=== PATIENT | female | born 1970 | race Caucasian/White ===

== ENCOUNTER 2024-07-30 20:14 | Observation (INO) ==
[2024-07-30 21:03] LABS: Basophils # (auto) 0.06 K/uL (0.00-0.20); Basophils % (auto) 0.4 %; Hematocrit (blood only) 39.5 % (37.0-47.0); Hemoglobin 13.8 g/dl (12.0-16.0); Immature Granulocytes # (auto) 0.07 K/uL (0.01-0.20); Immature Granulocytes % (auto) 0.5 %; Lymphocytes # (auto) 1.67 K/uL (1.20-3.40); Lymphocytes % (auto) 11.2 %; Mean Corpuscular Hemoglobin 29.1 pg (25.0-34.0); Mean Corpuscular Hgb Conc 34.9 g/dL (32.0-36.0); Mean Corpuscular Volume 83.2 fL (80.0-100.0); Mean Platelet Volume 9.8 fL (9.4-12.4); Monocytes # (auto) 1.17 K/uL (0.11-0.59); Monocytes % (auto) 7.8 %; Neutrophils # (auto) 11.99 K/uL (1.40-6.50); Neutrophils % (auto) 80.1 %; Platelet Count 295 K/uL (130-400); RDW Standard Deviation 39.2 fL (36.4-46.3); Red Blood Count 4.75 M/uL (4.20-5.40); White Blood Count 14.96 K/ul (4.8-10.8)
[2024-07-30 21:07] LABS: Appearance Urine Clear (Clear); Bacteria Urine Automated None Seen (None Seen); Bilirubin Urine Negative (Negative); Blood Urine Trace (Negative); Cast Urine Automated 0-2 /lpf (0-2); Color Urine Yellow; Epithelial Cell Urine Auto 0-2 /hpf (0-2); Glucose Urine UA Negative (Negative); Ketones Urine Negative (Negative); Leukocyte Esterase Urine Negative (Negative); Nitrite Urine Negative (Negative); Protein Urine Negative (Negative); RBC Urine Automated 0-2 /hpf (0-2); Specific Gravity Urine 1.009 (1.000-1.030); Urobilinogen Urine Negative (Negative); WBC Urine Automated 0-5 /hpf (0-5); pH Urine 8.5 (4.5-7.5)
[2024-07-30 21:21] LABS: Albumin Globulin Ratio 1.7 (0.9-2); BUN Creatinine Ratio 30.3 (10-20); Bilirubin,Total 1.9 mg/dl (0.2-1.0); Calcium 10.4 mg/dl (8.6-10.3); Creatinine Clr Calc Pharmacy 41.9 ml/min; Globulin 2.6 gm/dl (2.5-4.0); Potassium 3.8 mmol/L (3.5-5.1)
--- NOTE | 2024-07-30 21:42 | Emergency Department Note ---
History of Present Illness General Chief complaint: Illness Stated complaint: [employer] TODAY,LABORED BREATHING,DIARRHEA,TACHY Time Seen by Provider: 07/30/24 21:15 History of Present Illness This is a 54-year-old female presenting to the emergency department for evaluation of tachycardia, difficulty breathing, diarrhea, and fatigue. Patient competed in the [employer] today, which includes a swim of over 1 mile, 56 mile bike ride, and half marathon. She completed the event and was trying to stay hydrated with electrolyte drinks. Patient was able to complete the [employer] and feels like she has not recovered as she normally does. She does have a past history of exercise-induced asthma, but is otherwise usually healthy. She does not report any fevers or chills. She is concerned that she may be dehydrated. She rates her current discomfort a 4/10. The event ended about 4 to 5 hours prior to arrival. Home Medications Medication Instructions Recorded Confirmed Type cetirizine 10 mg tablet (Zyrtec) 10 mg PO DAILY PRN allergies 07/30/24 07/30/24 History multivitamin 1 tab PO DAILY 07/30/24 07/30/24 History Allergies Allergy/AdvReac Type Severity Reaction Status Date / Time No Known Allergies Allergy Unverified 07/30/24 20:54 Past Med/Surg History Problem List (Updated 07/31/24 @ 05:07 by Daniel Wall PA-C) Elevated troponin (Acute) Rhabdomyolysis (Acute) No chronic diseases present Social History Smoking Status: Never smoker Hx Alcohol Use: No Hx Substance Use: No Preferred Language: Belarusian Communication Ability: Effective Central Service Technician Required: No Beliefs That Will Affect Care: None Current Living Situation Comment: With her two adult children Feels Safe at Home: Yes Assistive Devices: None Review of Systems A total of 10 systems reviewed and were otherwise negative Physical Exam Vital Signs Vital Signs - 24 hr 07/30/24 20:22 07/30/24 20:47 07/30/24 21:12 Temperature 36.8 C Temperature Source Temporal Artery Scan Pulse Rate 84 82 Pulse Rate [Apical] 74 Pulse Rhythm [Apical] Regular Pulse Strength [Apical] Normal Respiratory Rate 22 17 16 Respiratory Effort / Characteristics Non-Labored Spontaneous Non-Labored Spontaneous Respiratory Depth Normal Normal Respiratory Pattern Regular Regular Blood Pressure 139/63 128/74 Blood Pressure [Left Arm] 146/77 H Blood Pressure Mean 88 92 Blood Pressure Mean [Left Arm] 100 Blood Pressure Position Sitting Pulse Oximetry 96 98 98 Oxygen Delivery Method Room Air Room Air Sepsis Recent Fever Within 48 Hours No Sepsis New/Unexplained Change in Mental Status N/A Sepsis Action Taken by Nursing No Action Required 07/30/24 21:38 07/30/24 21:39 07/30/24 22:00 Temperature Temperature Source Pulse Rate 73 70 72 Pulse Rate [Apical] Pulse Rhythm [Apical] Pulse Strength [Apical] Respiratory Rate 15 19 Respiratory Effort / Characteristics Respiratory Depth Respiratory Pattern Blood Pressure 135/74 130/87 Blood Pressure [Left Arm] Blood Pressure Mean 94 103 Blood Pressure Mean [Left Arm] Blood Pressure Position Pulse Oximetry 97 98 Oxygen Delivery Method Sepsis Recent Fever Within 48 Hours Sepsis New/Unexplained Change in Mental Status Sepsis Action Taken by Nursing 07/30/24 22:27 07/30/24 23:06 07/30/24 23:36 Temperature Temperature Source Pulse Rate 65 67 71 Pulse Rate [Apical] Pulse Rhythm [Apical] Pulse Strength [Apical] Respiratory Rate 15 18 17 Respiratory Effort / Characteristics Respiratory Depth Respiratory Pattern Blood Pressure 123/66 140/87 127/73 Blood Pressure [Left Arm] Blood Pressure Mean 85 104 91 Blood Pressure Mean [Left Arm] Blood Pressure Position Pulse Oximetry 99 98 100 Oxygen Delivery Method Sepsis Recent Fever Within 48 Hours Sepsis New/Unexplained Change in Mental Status Sepsis Action Taken by Nursing 07/31/24 00:00 07/31/24 00:33 07/31/24 00:51 Temperature Temperature Source Pulse Rate 67 69 74 Pulse Rate [Apical] Pulse Rhythm [Apical] Pulse Strength [Apical] Respiratory Rate 14 22 Respiratory Effort / Characteristics Respiratory Depth Respiratory Pattern Blood Pressure 143/85 H 134/66 Blood Pressure [Left Arm] Blood Pressure Mean 104 88 Blood Pressure Mean [Left Arm] Blood Pressure Position Pulse Oximetry 100 98 Oxygen Delivery Method Sepsis Recent Fever Within 48 Hours Sepsis New/Unexplained Change in Mental Status Sepsis Action Taken by Nursing 07/31/24 01:15 Temperature Temperature Source Pulse Rate 67 Pulse Rate [Apical] Pulse Rhythm [Apical] Pulse Strength [Apical] Respiratory Rate 25 H Respiratory Effort / Characteristics Respiratory Depth Respiratory Pattern Blood Pressure 146/86 H Blood Pressure [Left Arm] Blood Pressure Mean 106 Blood Pressure Mean [Left Arm] Blood Pressure Position Pulse Oximetry 98 Oxygen Delivery Method Sepsis Recent Fever Within 48 Hours Sepsis New/Unexplained Change in Mental Status Sepsis Action Taken by Nursing VITALS: Vitals are noted on the nurse's note and reviewed by myself. Vital signs stable. GENERAL: Well-developed, well-nourished, white female, who is in no acute distress and resting comfortably. Patient is cooperative with the examination. HEAD: Normocephalic atraumatic. EARS: External ear normal. External auditory canals clear, tympanic membranes pearly marti without erythema or effusion bilaterally. EYES: Pupils equal round and reactive to light and accommodation. Conjunctivae without injection, sclerae without icterus. Extraocular movements intact. NOSE: Patent, turbinates without inflammation or discharge. MOUTH: Mucous membranes moist. Tonsils are not enlarged. Pharynx without erythema, blood, or exudate. Uvula midline. Airway patent. NECK: Supple without nuchal rigidity. No lymphadenopathy. No thyromegaly. Cervical spine is nontender. HEART: Regular rate and rhythm without murmurs gallops or rubs. LUNGS: Clear to auscultation bilaterally without wheezes, rales or rhonchi. No retractions or accessory muscle use. ABDOMEN: Positive normal bowel sounds x 4. Soft, nontender, without masses or organomegaly. No guarding or rebound tenderness. MUSCULOSKELETAL: No muscle atrophy, erythema, or edema noted. Full range of motion in all extremities. Course Administered Medications Sodium Chloride (Nss) 1,000 mls @ 200 mls/hr IV .Q5H ANALISA Stop: 08/03/24 02:40 Last Admin: 07/31/24 03:16 Dose: 200 mls/hr Documented By: MY Discontinued Medications Sodium Chloride (Nss) 1,000 mls @ 999 mls/hr IV .Q1H1M ONE Stop: 07/30/24 22:56 Last Infusion: 07/30/24 23:22 Dose: Infused Documented By: Admin: 07/30/24 22:07 Dose: 999 mls/hr Documented By: WING Sodium Chloride (Nss) 1,000 mls @ 999 mls/hr IV .Q1H1M ONE Stop: 07/31/24 00:32 Last Infusion: 07/31/24 01:26 Dose: Infused Documented By: Admin: 07/30/24 23:35 Dose: 999 mls/hr Documented By: WING Magnesium Sulfate/Dextrose (Magnesium Sulfate / D5w) 1 gm in 100 mls @ 50 mls/hr IV ONE STA Stop: 07/31/24 04:00 Last Admin: 07/31/24 02:12 Dose: 50 mls/hr Documented By: WING Medical Decision Making Differential Diagnosis Differential diagnosis includes, but is not limited to: Myocardial infarction, dysrhythmia, pericarditis, pneumothorax, aortic aneurysm/dissection, DVT/PE, anxiety, GERD, PUD, electrolyte imbalance, thyroid disorder, pneumonia, bronchitis, pancreatitis, and others Laboratory Data 07/30/24 20:40 07/30/24 20:40 Lab Results 07/30/24 07/30/24 Range/Units 20:40 20:54 WBC 14.96 H (4.8-10.8) K/ul RBC 4.75 (4.20-5.40) M/uL Hgb 13.8 (12.0-16.0) g/dl Hct 39.5 (37.0-47.0) % MCV 83.2 (80.0-100.0) fL MCH 29.1 (25.0-34.0) pg MCHC 34.9 (32.0-36.0) g/dL RDW Std Deviation 39.2 (36.4-46.3) fL RDW Coeff of Juan R 13.0 (11.5-14.5) % Plt Count 295 (130-400) K/uL MPV 9.8 (9.4-12.4) fL Immature Gran % (Auto) 0.5 % Neut % (Auto) 80.1 % Lymph % (Auto) 11.2 % [place] % (Auto) 7.8 % Eos % (Auto) 0.0 % Baso % (Auto) 0.4 % Neut # (Auto) 11.99 H (1.40-6.50) K/uL Lymph # (Auto) 1.67 (1.20-3.40) K/uL [place] # (Auto) 1.17 H (0.11-0.59) K/uL Eos # (Auto) 0.00 (0.00-0.50) K/uL Baso # (Auto) 0.06 (0.00-0.20) K/uL Immature Gran # (Auto) 0.07 (0.01-0.20) K/uL Sodium 140 (136-145) mmol/L Potassium 3.8 (3.5-5.1) mmol/L Chloride 103 (98-107) mmol/L Carbon Dioxide 26 (21-32) mmol/L Anion Gap 11 (3-11) BUN 37 H (6-23) mg/dl Creatinine 1.22 H (0.6-1.2) mg/dl Est Cr Clr Drug Dosing 41.9 ml/min eGFR 53.06 BUN/Creatinine Ratio 30.3 H (10-20) Glucose 120 H (70-99(Fasting)) mg/dl Calcium 10.4 H (8.6-10.3) mg/dl Total Bilirubin 1.9 H (0.2-1.0) mg/dl AST 149 H (13-39) U/L ALT 52 (7-52) U/L Alkaline Phosphatase 77 (34-104) U/L Total Creatine Kinase 4530 H (26-192) U/L Troponin I High Sens 139.6 H* (0-14) pg/ml Total Protein 7.0 (6.0-8.3) gm/dl Albumin 4.4 (3.4-5.0) gm/dl Globulin 2.6 (2.5-4.0) gm/dl Albumin/Globulin Ratio 1.7 (0.9-2) Urine Color Yellow Urine Appearance Clear (Clear) Urine pH 8.5 H (4.5-7.5) Ur Specific [place] 1.009 (1.000-1.030) Urine Protein Negative (Negative) Urine Glucose (UA) Negative (Negative) Urine Ketones Negative (Negative) Urine Blood Trace H (Negative) Urine Nitrite Negative (Negative) Urine Bilirubin Negative (Negative) Urine Urobilinogen Negative (Negative) Ur Leukocyte Esterase Negative (Negative) Urine WBC (Auto) 0-5 (0-5) /hpf Urine RBC (Auto) 0-2 (0-2) /hpf U Hyaline Cast (Auto) 0-2 (0-2) /lpf U Epithel Cells (Auto) 0-2 (0-2) /hpf Urine Bacteria (Auto) None Seen (None Seen) Urine Comment Imaging Data Radiologist's Impression: Chest X-Ray 07/30/24 21:20 Exam(s): XR CXR 1 VIEW EXAM: XR Chest, 1 View CLINICAL HISTORY: Reason for exam: sob. TECHNIQUE: Frontal view of the chest. COMPARISON: No relevant prior studies available. FINDINGS: Lungs: Mild to moderate peribronchial thickening of the central bronchi. No consolidation. Pleural space: Unremarkable. No pneumothorax. Heart: Unremarkable. No cardiomegaly. Mediastinum: Unremarkable. Normal mediastinal contour. Bones/joints: Unremarkable. No acute fracture. IMPRESSION: Bronchitis, which may be of infectious or inflammatory etiologies. No consolidation or pleural effusion. Electronically signed by: Jessika Bran MD 07/31/24 03:08 AM MDM Narrative Physical exam and history were performed. Nursing notes, EMR, and Medication List were personally reviewed. No social concerns were identified as barriers to patients care. History was provided by the Patient and significant other at bedside. Patient appears to have several complaints bring her to the ER. She did participate in the [employer] competition this afternoon, and was able to complete it. Symptoms began after completion. She has not had much to eat since the episode, stating that she had a potato. IV access was established and labs were obtained. Patient was hydrated with normal saline. An order was placed for continuous cardiac monitoring. The monitor shows a rate of 86 with normal sinus rhythm. Patient's blood work is as above and was reviewed. She does have a slightly elevated white count of almost 15,000. She does not have significant anemia. Creatinine is 1.22. Glucose 120. Patient's initial troponin is 139. Total CK is 4530. Urine without evidence of infection. Chest x-ray reviewed by myself and radiology showing no acute process. Escalation of care was considered, and felt to be necessary. I suspect the initial troponin elevation is demand based after competing in the [employer] today. Unfortunately she appears to be in rhabdomyolysis. Patient was given additional fluids. Case was discussed with my attending as well as the on-call hospitalist team. Please see the hospitalist dictation for further patient course, plan, and disposition. The chart was completed utilizing [employer] Speech Voice Recognition Software. Grammatical errors, random word insertions, pronoun errors, and incomplete sentences are an occasional consequence of this system due to software limitations, ambient noise, and hardware issues. Any formal questions or concerns about the content, text, or information contained within the body of this dictation should be directly addressed to the provider for clarification. Impression & Plan Rhabdomyolysis, Elevated troponin Discharge Plan Visit Data Chief Complaint: Illness Stated Complaint: [employer] TODAY,LABORED BREATHING,DIARRHEA,TACHY ED Provider: Humza Kennedy ED Midlevel Provider: Daniel Wall Discharge Problem: Rhabdomyolysis, Elevated troponin Patient Disposition: Admitted As Inpatient Condition: Fair Discharge Instructions Interventions: ED Discharge Assessment Last Done: 07/31/24 02:17
[2024-07-30 21:54] LABS: Troponin I High Sensitivity 139.6 pg/ml (0-14)
[2024-07-30] MEDS: SODIUM CHLORIDE 0.9% 1,000 ML IV ONE ×2 (22:07→23:35)
--- NOTE | 2024-07-31 01:47 | History & Physical Report ---
Date of Service July 31, 2024 Assessment & Plan (1) Rhabdomyolysis: Plan: 54-year-old female with past medical history significant for primary hyperparathyroidism status post surgery, exercise-induced asthma who participated in [employer] today comes in because of not feeling well and found to have rhabdomyolysis. Patient participated in [employer] today which included swimming of over a 1 mile, 56 mile bike ride and half marathon. Patient completed the event and stayed hydrated. But after completing [employer] patient was having heart rates in 100s and was breathing heavily which did not improve even after several hours and also had several hours of diarrhea which prompted her to come to the ER. Currently diarrhea resolved. Denies any chest pain. Has some bodyaches from all the activity. Denies any shortness of breath. No headache. No runny nose or sore throat or cough. No fevers. No nausea. Micturating okay. Hemodynamics are okay. Rhabdomyolysis Participated in [employer] which included more than a mile of swimming, 56 miles of bike ride and half marathon. Completed the event. After that she was having heart rates in 100s and heavy breathing and diarrhea which did not subside even after several hours and came to the ER. Labs showed total [id number] Getting aggressive fluids Will follow repeat labs Elevated troponin Troponins 139 Denies any chest pain EKG shows some conduction delay and prolonged QTc Will follow serial enzymes and echo and repeat EKG will consult cardiology Monitor on telemetry Prolonged QTc Avoid QT prolonging drugs Will follow repeat EKG Elevated LFTs Total bilirubin 1.9 AST 140 and ALT 52 and alkaline phosphatase 77 Follow repeat LFTs in a.m. Mild hypercalcemia Calcium 10.4 Mostly from dehydration Follow repeat labs JADIEL Creatinine 1.2 BUN 37 Getting fluids Follow repeat labs Leukocytosis WBC 14 Most reactive Will follow repeat labs DVT prophylaxis SCDs for now Disposition Telemetry Full code. History of Present Illness Chief Complaint: Rhabdomyolysis Primary Care Provider: Suzan Marrero DO 54-year-old female with past medical history significant for primary hyperparathyroidism status post surgery, exercise-induced asthma who participated in [employer] today comes in because of not feeling well and found to have rhabdomyolysis. Patient participated in [employer] today which included swimming of over a 1 mile, 56 mile bike ride and half marathon. Patient completed the event and stayed hydrated. But after completing [employer] patient was having heart rates in 100s and was breathing heavily which did not improve even after several hours and also had several hours of diarrhea which prompted her to come to the ER. Currently diarrhea resolved. Denies any chest pain. Has some bodyaches from all the activity. Denies any shortness of breath. No headache. No runny nose or sore throat or cough. No fevers. No nausea. Mi cturating okay. Hemodynamics are okay. Past medical history. As mentioned above Past surgical history. Parathyroidectomy. dental surgery Social history. No smoking. No alcohol use. Family history. Denies any family history. Allergies Allergy/AdvReac Type Severity Reaction Status Date / Time No Known Allergies Allergy Unverified 07/30/24 20:54 Home Medications Medication Instructions Recorded Confirmed Type cetirizine 10 mg tablet (Zyrtec) 10 mg PO DAILY PRN allergies 07/30/24 07/30/24 History multivitamin 1 tab PO DAILY 07/30/24 07/30/24 History Past Med/Surg History Problem List (Updated 07/31/24 @ 05:07 by Daniel Wall PA-C) Elevated troponin (Acute) Rhabdomyolysis (Acute) No chronic diseases present Social History Smoking Status: Never smoker Hx Alcohol Use: No Hx Substance Use: No Preferred Language: Kinyarwanda Communication Ability: Effective Manager Instrumentation Required: No Beliefs That Will Affect Care: None Current Living Situation Comment: With her two adult children Feels Safe at Home: Yes Assistive Devices: None Review of Systems Review of Systems: All systems reviewed & are unremarkable except as noted in HPI & below Physical Exam Physical Exam: General- Not in distress Head- atraumatic Eyes- PERRL. ENT- oropharynx clear Neck- supple, no JVD. Lungs- clear to auscultation no wheezing or crackles Heart- regular rate and rhythm; no murmur, no gallop. Abdomen- normal bowel sounds, soft, nontender, no distension Extremities- no pretibial edema, no erythema seen Neuro- alert, oriented PERRL, no facial palsy; no dysarthria; moves extremities Results & Data Results & Data Vital Signs (Past 12 Hours) Vital Signs Temp Pulse Pulse Resp BP BP Pulse Ox 07/31/24 01:15 67 25 H 146/86 H 98 07/31/24 00:51 74 07/31/24 00:33 69 22 134/66 98 07/31/24 00:00 67 14 143/85 H 100 07/30/24 23:36 71 17 127/73 100 07/30/24 23:06 67 18 140/87 98 07/30/24 22:27 65 15 123/66 99 07/30/24 22:00 72 19 130/87 98 07/30/24 21:39 70 15 135/74 97 07/30/24 21:38 73 07/30/24 21:12 82 16 128/74 98 07/30/24 20:47 74 17 146/77 H 98 07/30/24 20:22 36.8 C 84 22 139/63 96 O2 Del Method 07/31/24 01:15 07/31/24 00:51 07/31/24 00:33 07/31/24 00:00 07/30/24 23:36 07/30/24 23:06 07/30/24 22:27 07/30/24 22:00 07/30/24 21:39 07/30/24 21:38 07/30/24 21:12 07/30/24 20:47 Room Air 07/30/24 20:22 Room Air Diagnostic Findings Laboratory Results WBC 14.96 K/ul (4.8-10.8) H 07/30/24 20:40 RBC 4.75 M/uL (4.20-5.40) 07/30/24 20:40 Hgb 13.8 g/dl (12.0-16.0) 07/30/24 20:40 Hct 39.5 % (37.0-47.0) 07/30/24 20:40 MCV 83.2 fL (80.0-100.0) 07/30/24 20:40 MCH 29.1 pg (25.0-34.0) 07/30/24 20:40 MCHC 34.9 g/dL (32.0-36.0) 07/30/24 20:40 RDW Std Deviation 39.2 fL (36.4-46.3) 07/30/24 20:40 RDW Coeff of Juan R 13.0 % (11.5-14.5) 07/30/24 20:40 Plt Count 295 K/uL (130-400) 07/30/24 20:40 MPV 9.8 fL (9.4-12.4) 07/30/24 20:40 Immature Gran % (Auto) 0.5 % 07/30/24 20:40 Neut % (Auto) 80.1 % 07/30/24 20:40 Lymph % (Auto) 11.2 % 07/30/24 20:40 [place] % (Auto) 7.8 % 07/30/24 20:40 Eos % (Auto) 0.0 % 07/30/24 20:40 Baso % (Auto) 0.4 % 07/30/24 20:40 Neut # (Auto) 11.99 K/uL (1.40-6.50) H 07/30/24 20:40 Lymph # (Auto) 1.67 K/uL (1.20-3.40) 07/30/24 20:40 [place] # (Auto) 1.17 K/uL (0.11-0.59) H 07/30/24 20:40 Eos # (Auto) 0.00 K/uL (0.00-0.50) 07/30/24 20:40 Baso # (Auto) 0.06 K/uL (0.00-0.20) 07/30/24 20:40 Immature Gran # (Auto) 0.07 K/uL (0.01-0.20) 07/30/24 20:40 Sodium 140 mmol/L (136-145) 07/30/24 20:40 Potassium 3.8 mmol/L (3.5-5.1) 07/30/24 20:40 Chloride 103 mmol/L (98-107) 07/30/24 20:40 Carbon Dioxide 26 mmol/L (21-32) 07/30/24 20:40 Anion Gap 11 (3-11) 07/30/24 20:40 BUN 37 mg/dl (6-23) H 07/30/24 20:40 Creatinine 1.22 mg/dl (0.6-1.2) H 07/30/24 20:40 Est Cr Clr Drug Dosing 41.9 ml/min 07/30/24 20:40 eGFR 53.06 07/30/24 20:40 BUN/Creatinine Ratio 30.3 (10-20) H 07/30/24 20:40 Glucose 120 mg/dl (70-99(Fasting)) H 07/30/24 20:40 Calcium 10.4 mg/dl (8.6-10.3) H 07/30/24 20:40 Total Bilirubin 1.9 mg/dl (0.2-1.0) H 07/30/24 20:40 AST 149 U/L (13-39) H 07/30/24 20:40 ALT 52 U/L (7-52) 07/30/24 20:40 Alkaline Phosphatase 77 U/L (34-104) 07/30/24 20:40 Total Creatine Kinase 4530 U/L (26-192) H 07/30/24 20:40 Troponin I High Sens 139.6 pg/ml (0-14) H* 07/30/24 20:40 Total Protein 7.0 gm/dl (6.0-8.3) 07/30/24 20:40 Albumin 4.4 gm/dl (3.4-5.0) 07/30/24 20:40 Globulin 2.6 gm/dl (2.5-4.0) 07/30/24 20:40 Albumin/Globulin Ratio 1.7 (0.9-2) 07/30/24 20:40 Urine Color Yellow 07/30/24 20:54 Urine Appearance Clear (Clear) 07/30/24 20:54 Urine pH 8.5 (4.5-7.5) H 07/30/24 20:54 Ur Specific [place] 1.009 (1.000-1.030) 07/30/24 20:54 Urine Protein Negative (Negative) 07/30/24 20:54 Urine Glucose (UA) Negative (Negative) 07/30/24 20:54 Urine Ketones Negative (Negative) 07/30/24 20:54 Urine Blood Trace (Negative) H 07/30/24 20:54 Urine Nitrite Negative (Negative) 07/30/24:54 Urine Bilirubin Negative (Negative) 07/30/24 20:54 Urine Urobilinogen Negative (Negative) 07/30/24 20:54 Ur Leukocyte Esterase Negative (Negative) 07/30/24 20:54 Urine WBC (Auto) 0-5 /hpf (0-5) 07/30/24 20:54 Urine RBC (Auto) 0-2 /hpf (0-2) 07/30/24 20:54 U Hyaline Cast (Auto) 0-2 /lpf (0-2) 07/30/24 20:54 U Epithel Cells (Auto) 0-2 /hpf (0-2) 07/30/24 20:54 Urine Bacteria (Auto) None Seen (None Seen) 07/30/24 20:54 Urine Comment 07/30/24 20:54 ECG Additional Comments: ECG. Normal sinus rhythm rate of 70. RSR or QR pattern in in V1 suggests right ventricular conduction delay. Prolonged QTc of 570. Code Status & VTE Plan VTE Prophylaxis Plan VTE Prophylaxis will be ordered: Yes
[2024-07-31] MEDS: MAGNESIUM SULFATE / D5W 1 GM/100 ML BAG IV STA (02:12)
[2024-07-31] MEDS ORDERED: NITROGLYCERIN SL 0.4 MG/TAB TAB SL PRN (02:41)
--- NOTE | 2024-07-31 03:09 | XRay Report ---
Exam(s): XR CXR 1 VIEW EXAM: XR Chest, 1 View CLINICAL HISTORY: Reason for exam: sob. TECHNIQUE: Frontal view of the chest. COMPARISON: No relevant prior studies available. FINDINGS: Lungs: Mild to moderate peribronchial thickening of the central bronchi. No consolidation. Pleural space: Unremarkable. No pneumothorax. Heart: Unremarkable. No cardiomegaly. Mediastinum: Unremarkable. Normal mediastinal contour. Bones/joints: Unremarkable. No acute fracture. IMPRESSION: Bronchitis, which may be of infectious or inflammatory etiologies. No consolidation or pleural effusion. Electronically signed by: Jessika Bran MD 07/31/24 03:08 AM
[2024-07-31] MEDS: SODIUM CHLORIDE 0.9% 1,000 ML IV SCH (03:16)
[2024-07-31 05:59] LABS: Basophils # (auto) 0.05 K/uL (0.00-0.20); Basophils % (auto) 0.4 %; Eosinophils % (auto) 0.9 %; Hematocrit (blood only) 33.9 % (37.0-47.0); Hemoglobin 11.3 g/dl (12.0-16.0); Immature Granulocytes # (auto) 0.04 K/uL (0.01-0.20); Immature Granulocytes % (auto) 0.4 %; Lymphocytes # (auto) 2.67 K/uL (1.20-3.40); Mean Corpuscular Hemoglobin 28.5 pg (25.0-34.0); Mean Corpuscular Hgb Conc 33.3 g/dL (32.0-36.0); Mean Corpuscular Volume 85.6 fL (80.0-100.0); Mean Platelet Volume 9.8 fL (9.4-12.4); Monocytes # (auto) 1.14 K/uL (0.11-0.59); Monocytes % (auto) 10.2 %; Neutrophils # (auto) 7.14 K/uL (1.40-6.50); Neutrophils % (auto) 64.1 %; Platelet Count 229 K/uL (130-400); RDW Coefficient of Variation 13.5 % (11.5-14.5); RDW Standard Deviation 41.8 fL (36.4-46.3); Red Blood Count 3.96 M/uL (4.20-5.40); White Blood Count 11.14 K/ul (4.8-10.8)
[2024-07-31 06:34] LABS: BUN Creatinine Ratio 27.2 (10-20); Calcium 7.8 mg/dl (8.6-10.3); Creatinine Clr Calc Pharmacy 49.6 ml/min; Magnesium 2.4 mg/dl (1.7-2.4); Potassium 3.7 mmol/L (3.5-5.1); Troponin I High Sensitivity 92.5 pg/ml (0-14)
[2024-07-31] MEDS: MULTIVITAMIN TAB PO SCH (08:22)
--- NOTE | 2024-07-31 09:02 | Cardiology Consultation ---
Date of Consultation July 31, 2024 Assessment & Plan (1) Rhabdomyolysis: (2) Elevated troponin: (3) Abnormal electrocardiogram [ECG] [EKG]: Plan Assessment: 54 year old female admitted for elevated heart rate post Iron-man triathlon event with diarrhea and elevated cardiac enzymes. Cardiology has been asked to assess and provide recommendations. Plan: 1. Rhabdomyolysis: 2. Elevated troponin 3. Prolonged QT interval, anterior T wave inversions. -IN the setting of extreme physical exertion with acute dehydration and diarrhea -Initial EKG showed a prolonged QT which has since improved after rest and hydration. No acute events on telemetry. -Troponin with mild elevation and there is notation of T wave inversion in the anterior leads on repeat study. -Echocardiogram shows LVEF of 63%, no regional wall motion abnormalities. Mild concentric LVH, Trace AI and Grade I diastolic dysfunction. -Repeat High sensitivity troponin. Please refer to Dr. Mcleod's note for additional Plan recommendations Case has been discussed with Dr. Mcledo. Further recommendations regarding plan of care as per his assessment. I spent a total of 40 minutes on the date of service in preparation, delivery, documentation of the care provided to the patient excluding any time spent in the performance of separately billed services. YOANDY [facility] Cardiology [facility] Supervising Physician Co-Signing Physician Notes Attending attestation: Case reviewed with the advanced practitioner. I have personally performed a history and physical examination on the patient. I have reviewed the advanced practitioner's documentation on the date of service referenced in note, and I agree with, and take responsibility for the plan of care. Subjective: 54-year-old physically active female without any past history of heart or vascular disease presents with sensation of some degree of difficulty with her breathing after completing the half Iron[employer] competition yesterday. She states that at baseline when she finishes running 6 miles she has a sensation where she has to walk until her breathing comes back to normal and her heart rate returns to normal. This sensation continued longer than her usual after she finished the event yesterday. She developed diarrhea at home after the competition and on her smart watch she observed ongoing elevation in her heart rate at just above 100 bpm that persisted despite prolonged rest. Today she feels well with the exception of an expected degree of soreness in her legs. Denies chest discomfort or shortness of breath. She has no past history of passing out or subjective palpitations. She underwent parathyroidectomy in 2022. Accompanied today by her significant other, Humza. Family Hisory: Mother and father both alive in their 70s no history of cardiovascular disease She believes that her grandfather had a myocardial infarction in his 50s or 60s. He is alive at the age of 96 now. No other details about the patient. Exam: Cardiovascular: Regular rhythm, no murmurs, no edema Data: Telemetry sinus rhythm in the 60s to 70s noted overnight last night without arrhythmias EKG performed 07/30/2024 at 2123 and interpret independently: Sinus rhythm at 70 bpm, rSR' pattern noted in lead V1 suggestive of right ventricular conduction delay, prolonged QT interval measured to be [address] and T waves. Repeat tracing performed 07/31/2024 at 10:34 AM and interpreted independently: Sinus bradycardia 50 bpm, rSR' pattern again noted in V1 and V2 consistent with right sided ventricular conduction delay, nonspecific T wave inversion noted noted in the precordial leads V1 and V3, T wave inversion limited to the inferior lead III. Corrected QT interval still mildly prolonged but improved to 490 ms. - Compared to the previous, the T wave inversions in leads V2, V3, III now present. Magnesium level within normal limits Creatinine on presentation 1.22 down to 1.03 mg/dL CPK level 4530 units/L on presentation last evening, 4442 units/L at 5:24 AM High-sensitivity troponin 139--> 92.5--> 63.9 PG per mL With most recent measurement of 11:33 AM Echocardiogram performed today 07/31/2024 interpreted dependently: Sinus rhythm in the 60s noted during the echocardiogram Mild concentric left ventricular hypertrophy Normal left ventricular Wall motion without regional wall motion abnormalities LVEF calculated be 63% by the biplane method The right ventricle size is normal and the right ventricular systolic function is normal Trace aortic valve regurgitation is present with trileaflet aortic valve Grade 1 diastolic dysfunction Impression/ Plan: Evaluate for mildly elevated troponin is not expected given the effort she put forth yesterday, exercising for 8 hours and 32 minutes. The great QT interval was prolonged, in the setting of dehydration and relative elevated calcium, electrolytes otherwise normal. She is not on any medications at baseline that would be implicated in prolonged QT interval. She has not had any previous EKG tracings. Upon repeat, the QT interval still mildly prolonged at 490 ms but certainly improved but is developed nonspecific T wave inversions. Echocardiogram reassuring. Recommend proceeding with an exercise stress echocardiogram for further risk stratification. Patient agreeable. I spent a total of 35 minutes coordinating, documenting, and providing care for this patient excluding time spent in the performance of separately billed services or time spent by another provider. Daniel Mcleod DO History of Present Illness Reason for Consultation: abnormal EKG, elevated troponin Requesting Physician: Kathleen godwin Attending Physician: Lang Reed MD History of Present Illness HPI: patient is a 54 year old female with PMHx significant for primary hyperthyroidism, and exercise induced asthma that presented to the ER after completing the [employer] competition yesterday. Patient reported staying hydrated and completed the event, but was followed with sustained heart rates > 100bpm, heavy breathing and several hours of diarrhea which promoted her to present to the ER. Patient denies any chest pain, pressure, palpitations, no pre-syncope or syncope. She states that her only symptom was that she continued to breathe heavily as though she were still exercising. She reports that she would have had no idea if a heart rate was over 100 if she was not checking her watch. Patient is sitting up in bed talking with family at time of my examination. She continues to deny any chest pain, pressure or palpitations. Breathing concerns had resolved. She was given IV hydration overnight and also reports that her diarrhea had subsided several hours ago. Reveiw of Telemetry shows SR rate 60-70's with no ectopy or acute events overnight. Initial EKG NSR, Right ventricular delay, Prolonged AT at 570ms. High sensitivity troponin: 139.6/92.5. Chest X-ray IMPRESSION: Bronchitis, which may be of infectious or inflammatory etiologies. No consolidation or pleural effusion. Allergies Allergy/AdvReac Type Severity Reaction Status Date / Time No Known Allergies Allergy Unverified 07/30/24 20:54 Home Medications Medication Instructions Recorded Confirmed Type cetirizine 10 mg tablet (Zyrtec) 10 mg PO DAILY PRN allergies 07/30/24 07/30/24 History multivitamin 1 tab PO DAILY 07/30/24 07/30/24 History Patient History Social History Smoking Status: Never smoker Hx Alcohol Use: No Hx Substance Use: No Preferred Language: Malagasy Communication Ability: Effective Workforce Management Analyst Required: No Beliefs That Will Affect Care: None Current Living Situation Comment: With her two adult children Feels Safe at Home: Yes Assistive Devices: None Review of Systems Review of Systems: All systems reviewed & are unremarkable except as noted in HPI & below Physical Exam Constitutional: well developed and well nourished; no acute distress Neck: normal visual inspection and trachea midline Respiratory: normal respiratory effort, lungs clear to auscultation Cardiovascular: RRR, no murmur, no edema Heart Sounds: normal S1 and normal S2; no murmur Vessels: dorsalis pedis pulses present; no JVD Extremities: no edema Skin: no rashes, warm and dry Psychiatric: A+Ox3, euthymic affect Results & Data Vital Signs (Past 12 Hours) Vital Signs Temp Pulse Pulse Resp BP BP Pulse Ox 07/31/24 07:31 36.8 C 66 16 124/81 97 07/31/24 06:19 69 07/31/24 03:49 07/31/24 02:58 36.7 C 68 22 126/68 97 07/31/24 02:41 07/31/24 02:41 36.7 C 68 22 126/68 97 07/31/24 02:12 71 17 100 07/31/24 02:00 109/52 L 07/31/24 01:48 73 24 124/78 97 07/31/24 01:15 67 25 H 146/86 H 98 07/31/24 00:51 74 07/31/24 00:33 69 22 134/66 98 07/31/24 00:00 67 14 143/85 H 100 07/30/24 23:36 71 17 127/73 100 07/30/24 23:06 67 18 140/87 98 07/30/24 22:27 65 15 123/66 99 07/30/24 22:00 72 19 130/87 98 07/30/24 21:39 70 15 135/74 97 07/30/24 21:38 73 07/30/24 21:12 82 16 128/74 98 Pulse Ox O2 Del Method O2 Del Method 07/31/24 07:31 Room Air 07/31/24 06:19 07/31/24 03:49 Room Air 07/31/24 02:58 Room Air 07/31/24 02:41 97 Room Air 07/31/24 02:41 Room Air 07/31/24 02:12 07/31/24 02:00 07/31/24 01:48 07/31/24 01:15 07/31/24 00:51 07/31/24 00:33 07/31/24 00:00 07/30/24 23:36 07/30/24 23:06 07/30/24 22:27 07/30/24 22:00 07/30/24 21:39 07/30/24 21:38 07/30/24 21:12 Laboratory Results Cardiac Enzymes 07/30/24 07/31/24 Range/Units 20:40 05:24 AST 149 H (13-39) U/L Troponin I High Sens 139.6 H* 92.5 H* D (0-14) pg/ml CBC 07/30/24 07/31/24 Range/Units 20:40 05:24 WBC 14.96 H 11.14 H (4.8-10.8) K/ul RBC 4.75 3.96 L (4.20-5.40) M/uL Hgb 13.8 11.3 L (12.0-16.0) g/dl Hct 39.5 33.9 L (37.0-47.0) % Plt Count 295 229 (130-400) K/uL Neut # (Auto) 11.99 H 7.14 H (1.40-6.50) K/uL Lymph # (Auto) 1.67 2.67 (1.20-3.40) K/uL [place] # (Auto) 1.17 H 1.14 H (0.11-0.59) K/uL Eos # (Auto) 0.00 0.10 (0.00-0.50) K/uL Baso # (Auto) 0.06 0.05 (0.00-0.20) K/uL Comprehensive Metabolic Panel 07/30/24 07/31/24 Range/Units 20:40 05:24 Sodium 140 141 (136-145) mmol/L Potassium 3.8 3.7 (3.5-5.1) mmol/L Chloride 103 112 H (98-107) mmol/L Carbon Dioxide 26 25 (21-32) mmol/L BUN 37 H 28 H (6-23) mg/dl Creatinine 1.22 H 1.03 (0.6-1.2) mg/dl Glucose 120 H 112 H (70-99(Fasting)) mg/dl Calcium 10.4 H 7.8 L D (8.6-10.3) mg/dl AST 149 H (13-39) U/L ALT 52 (7-52) U/L Alkaline Phosphatase 77 (34-104) U/L Total Protein 7.0 (6.0-8.3) gm/dl Albumin 4.4 (3.4-5.0) gm/dl Intake and Output 07/30/24 07/31/24 07/31/24 22:59 06:59 14:59 Intake Total 2099 1000 / 1000 Balance 2099 1000 / 1000 Intake: IV 2099 1000 / 1000 Magnesium Sulfate / D5w 1 gm In 100 / 100 100 ml @ 50 mls/hr IV [facility] Rx#:[id number] Sodium Chloride 0.9% 1,000 ml @ 1999 / 1999 1000 / 1000 200 mls/hr IV .Q5H [facility] Rx#: [id number] Other: # Unmeasured Voids 1 Weight 56.2 kg 56 kg Weight Measurement Method Chair Scale Built in [facility]
[2024-07-31] MEDS: LACTATED RINGER'S 1,000 ML IV SCH (12:07)
[2024-07-31 12:46] LABS: Chol HDL Ratio 1.6 (0-5)
--- NOTE | 2024-07-31 13:12 | Hospitalist Progress Note ---
Date of Service July 31, 2024 Assessment & Plan (1) Rhabdomyolysis: Plan: 54-year-old female with past medical history significant for primary hyperparathyroidism status post surgery, exercise-induced asthma who participated in [employer] today comes in because of not feeling well and found to have rhabdomyolysis. Patient participated in [employer] today which included swimming of over a 1 mile, 56 mile bike ride and half marathon. Patient completed the event and stayed hydrated. But after completing Iron[employer] patient was having heart rates in 100s and was breathing heavily which did not improve even after several hours and also had several hours of diarrhea which prompted her to come to the ER. Currently diarrhea resolved. Denies any chest pain. Has some bodyaches from all the activity. Denies any shortness of breath. No headache. No runny nose or sore throat or cough. No fevers. No nausea. Micturating okay. Hemodynamics are okay. Acute Rhabdomyolysis Participated in [employer] which included more than a mile of swimming, 56 miles of bike ride and half marathon. Completed the event. After that she was having heart rates in 100s and heavy breathing and diarrhea which did not subside even after several hours and came to the ER. [id number] Continue increased IV fluids Avoid statin for now Renal function improving Monitor LFTs Elevated troponin Abnormal EKG Prolonged QTc --ECHO: Mild concentric LVH, no regional wall motion abnormality. Left ventricular systolic function normal. Trace aortic regurgitation is present. Grade 1 diastolic dysfunction. EF 63%. Troponin trended down Plan for stress test today Appreciate cardiology input Prolonged QTc Avoid QT prolonging drugs Monitor Elevated LFTs Total bilirubin 1.9 AST 140 and ALT 52 and alkaline phosphatase 77 Likely due to rhabdomyolysis Recheck LFTs tomorrow Mild hypercalcemia Calcium 10.4 Likely due to dehydration Calcium levels improved with IV fluids Monitor Acute kidney injury Creatinine 1.0 today Continue IV fluids Avoid nephrotoxic agents as able Leukocytosis Findings suggestive of bronchitis on chest x-ray Patient denies any respiratory symptoms currently Check procalcitonin DVT Px: SCDs for now CODE STATUS Full code Disposition Expected discharge home Admission and Anticipated Discharge Date Admission Date: July 31, 2024 Subjective Patient is seen and examined at bedside Reports mild soreness of lower extremities but otherwise no complaints Family at bedside Plan for stress test today Denies any chest pain, dyspnea, nausea, vomiting, abdominal pain Review of Systems Review of Systems: All systems reviewed & are unremarkable except as noted in Subjective Physical Exam Physical Exam: Physical Exam: Vitals signs as noted above General Appearance:Moderately built and nourished, no apparent distress Head: normocephalic, Atraumatic Eyes: normal inspection, EOMI Neck: supple, Trachea midline Respiratory/Chest: Normal breath sounds, CTA, No accessory muscle use Cardiovascular: S1, S2, No murmur Abdomen/GI:Soft, Non tender, Bowel sounds present Extremities/Musculoskeletal:normal inspection, no edema Neurologic/Psych:AAOX3, grossly no focal neurological deficits Skin: normal color, warm Results & Data Results & Data Vital Signs (Past 12 Hours) Vital Signs Temp Pulse Pulse Resp BP BP Pulse Ox 07/31/24 11:23 36.6 C 62 16 141/83 H 96 07/31/24 08:00 64 07/31/24 07:31 36.8 C 66 16 124/81 97 07/31/24 06:19 69 07/31/24 03:49 07/31/24 02:58 36.7 C 68 22 126/68 97 07/31/24 02:41 07/31/24 02:41 36.7 C 68 22 126/68 97 07/31/24 02:12 71 17 100 07/31/24 02:00 109/52 L 07/31/24 01:48 73 24 124/78 97 07/31/24 01:15 67 25 H 146/86 H 98 Pulse Ox O2 Del Method O2 Del Method 07/31/24 11:23 Room Air 07/31/24 08:00 07/31/24 07:31 Room Air 07/31/24 06:19 07/31/24 03:49 Room Air 07/31/24 02:58 Room Air 07/31/24 02:41 97 Room Air 07/31/24 02:41 Room Air 07/31/24 02:12 07/31/24 02:00 07/31/24 01:48 07/31/24 01:15 Laboratory Results Short CBC 07/30/24 07/31/24 Range/Units 20:40 05:24 WBC 14.96 H 11.14 H (4.8-10.8) K/ul Hgb 13.8 11.3 L (12.0-16.0) g/dl Hct 39.5 33.9 L (37.0-47.0) % Plt Count 295 229 (130-400) K/uL BMP 07/30/24 07/31/24 20:40 05:24 Sodium 140 141 Potassium 3.8 3.7 Chloride 103 112 H Carbon Dioxide 26 25 BUN 37 H 28 H Creatinine 1.22 H 1.03 Glucose 120 H 112 H Calcium 10.4 H 7.8 L D Cardiac Enzymes 07/30/24 07/31/24 Range/Units 20:40 05:24 Total Creatine Kinase 4530 H 4442 H (26-192) U/L Liver Function 07/30/24 Range/Units 20:40 Total Bilirubin 1.9 H (0.2-1.0) mg/dl AST 149 H (13-39) U/L ALT 52 (7-52) U/L Alkaline Phosphatase 77 (34-104) U/L Albumin 4.4 (3.4-5.0) gm/dl Urine 07/30/24 Range/Units 20:54 Urine Color Yellow Urine Appearance Clear (Clear) Urine pH 8.5 H (4.5-7.5) Ur Specific Beauty 1.009 (1.000-1.030) Urine Protein Negative (Negative) Urine Glucose (UA) Negative (Negative)
--- NOTE | 2024-07-31 13:55 | Communication Note ---
Date of Service: July 31, 2024 Exercise stress echocardiogram is negative for ischemia. Transfer back to PCU off cardiac nurse. No further cardiac testing felt to be indicated. Further treatment for elevated CPK as per hospitalist service. Jimmy Mcleod DO
--- NOTE | 2024-08-01 05:53 | Electrocardiogram Report ---
Test Reason : Blood Pressure : */* mmHG Vent. Rate : 70 BPM Atrial Rate : 70 BPM P-R Int : 116 ms QRS Dur : 96 ms QT Int : 528 ms P-R-T Axes : 66 55 62 degrees QTcB Int : 570 ms Normal sinus rhythm RSR' or QR pattern in V1 suggests right ventricular conduction delay Prolonged QT Abnormal ECG No previous ECGs available Confirmed by Aron Kinney ([id number]) on 08/01/2024 5:53:36 AM Referred By: REFERRED SELF Confirmed By: Aron Kinney
--- NOTE | 2024-08-01 05:54 | Electrocardiogram Report ---
Test Reason : Blood Pressure : */* mmHG Vent. Rate : 58 BPM Atrial Rate : 58 BPM P-R Int : 120 ms QRS Dur : 92 ms QT Int : 500 ms P-R-T Axes : 54 25 17 degrees QTcB Int : 490 ms Sinus bradycardia RSR' or QR pattern in V1 suggests right ventricular conduction delay Nonspecific T wave abnormality Prolonged QT Abnormal ECG When compared with ECG of 30-Jul-2024 21:23, Nonspecific T wave abnormality now evident in Inferior leads Nonspecific T wave abnormality now evident in Anterior leads QT has shortened Confirmed by Aron Kinney ([id number]) on 08/01/2024 5:54:20 AM Referred By: REFERRED SELF Confirmed By: Aron Kinney
[2024-08-01 06:37] LABS: Hematocrit (blood only) 33.3 % (37.0-47.0); Hemoglobin 10.9 g/dl (12.0-16.0); Mean Corpuscular Hemoglobin 28.8 pg (25.0-34.0); Mean Corpuscular Hgb Conc 32.7 g/dL (32.0-36.0); Mean Corpuscular Volume 87.9 fL (80.0-100.0); Mean Platelet Volume 9.9 fL (9.4-12.4); Platelet Count 196 K/uL (130-400); RDW Coefficient of Variation 13.6 % (11.5-14.5); RDW Standard Deviation 43.7 fL (36.4-46.3); Red Blood Count 3.79 M/uL (4.20-5.40); White Blood Count 7.62 K/ul (4.8-10.8)
--- NOTE | 2024-08-01 06:38 | Electrocardiogram Report ---
Test Reason : Blood Pressure : */* mmHG Vent. Rate : 48 BPM Atrial Rate : 48 BPM P-R Int : 134 ms QRS Dur : 92 ms QT Int : 516 ms P-R-T Axes : 70 34 29 degrees QTcB Int : 462 ms Sinus bradycardia RSR' or QR pattern in V1 suggests right ventricular conduction delay Borderline ECG When compared with ECG of 31-Jul-2024 10:34, Nonspecific T wave abnormality, improved in Anterior leads Confirmed by Aron Kinney ([id number]) on 08/01/2024 6:37:59 AM Referred By: REFERRED SELF Confirmed By: Aron Kinney
[2024-08-01 07:00] LABS: BUN Creatinine Ratio 28.2 (10-20); Bilirubin Direct 0.1 mg/dl (0-0.2); Bilirubin,Total 0.8 mg/dl (0.2-1.0); Calcium 8.2 mg/dl (8.6-10.3); Creatinine Clr Calc Pharmacy 68.5 ml/min; Potassium 3.7 mmol/L (3.5-5.1); Total Protein 5.2 gm/dl (6.0-8.3)
--- NOTE | 2024-08-01 14:04 | Hospitalist Progress Note ---
Date of Service August 01, 2024 Assessment & Plan (1) Rhabdomyolysis: Plan: 54-year-old female with past medical history significant for primary hyperparathyroidism status post surgery, exercise-induced asthma who participated in [employer] today comes in because of not feeling well and found to have rhabdomyolysis. Patient participated in [employer] today which included swimming of over a 1 mile, 56 mile bike ride and half marathon. Patient completed the event and stayed hydrated. But after completing [employer] patient was having heart rates in 100s and was breathing heavily which did not improve even after several hours and also had several hours of diarrhea which prompted her to come to the ER. Currently diarrhea resolved. Denies any chest pain. Has some bodyaches from all the activity. Denies any shortness of breath. No headache. No runny nose or sore throat or cough. No fevers. No nausea. Micturating okay. Hemodynamics are okay. Acute Rhabdomyolysis Participated in [employer] which included more than a mile of swimming, 56 miles of bike ride and half marathon. Completed the event. After that she was having heart rates in 100s and heavy breathing and diarrhea which did not subside even after several hours and came to the ER. [id number] Continue increased IV fluids Avoid statin for now Renal function improving CK remains elevated at more than 3000 Will decrease IV fluid to 150 cc an hour and was advised to drink more fluid Will repeat CK tomorrow if it is below 1000 we will discharge the patient Elevated troponin Abnormal EKG Prolonged QTc --ECHO: Mild concentric LVH, no regional wall motion abnormality. Left ventricular systolic function normal. Trace aortic regurgitation is present. Grade 1 diastolic dysfunction. EF 63%. Troponin trended down Plan for stress test today- negative for any ischemia Appreciate cardiology input and recommendation Prolonged QTc Avoid QT prolonging drugs Monitor Elevated LFTs Total bilirubin 1.9 AST 140 and ALT 52 and alkaline phosphatase 77 Likely due to rhabdomyolysis Recheck LFTs tomorrow- minimally improved Will monitor Will get hepatitis profile Mild hypercalcemia Calcium 10.4 Likely due to dehydration Calcium levels improved with IV fluids Monitor Acute kidney injury Creatinine 1.0 today Continue IV fluids Avoid nephrotoxic agents as able Leukocytosis Findings suggestive of bronchitis on chest x-ray Patient denies any respiratory symptoms currently Check procalcitonin-0.74 DVT Px: SCDs for now CODE STATUS Full code Disposition Expected discharge home Admission and Anticipated Discharge Date Admission Date: July 31, 2024 Subjective 08/01/2024 The patient was seen and examined in telemetry unit She has been feeling much better denies any significant symptoms Has been making out enough urine Minimal puffiness of the face and eyelid Review of Systems Review of Systems: All systems reviewed and are unremarkable except as noted below Physical Exam Physical Exam: Lying in bed without any acute distress Constitutional: well developed and well nourished; not ill appearing Eyes: PERRL, conjunctivae normal, anicteric sclerae ENMT: external ear and nose normal, oropharynx normal Neck: trachea midline, no thyromegaly Respiratory: no respiratory distress Auscultation: lungs clear to auscultation bilaterally Cardiovascular: Rate/Rhythm: regular rate, regular rhythm and + bradycardic Heart Sounds: normal S2; no murmur Extremities: no edema Gastrointestinal (Abdomen): Inspection/Auscultation: normal bowel sounds; abdomen not distended Percussion/Palpation: abdomen soft; abdomen nontender Musculoskeletal: No acute arthritis involving any of the joint Neurologic: normal touch/pain/proprioception and moves all extremities; no focal motor deficits Lymphatic: no cervical or axillary lymphadenopathy Results & Data Results & Data Vital Signs (Past 12 Hours) Vital Signs Temp Pulse Pulse Resp BP Pulse Ox O2 Del Method 08/01/24 11:36 37.2 C 57 L 16 147/74 H 96 Room Air 08/01/24 07:44 36.5 C 48 L 18 138/73 96 Room Air 08/01/24 07:00 47 L 08/01/24 04:19 36.5 C 50 L 14 110/66 100 Room Air Laboratory Results Short CBC 08/01/24 Range/Units 06:01 WBC 7.62 (4.8-10.8) K/ul Hgb 10.9 L (12.0-16.0) g/dl Hct 33.3 L (37.0-47.0) % Plt Count 196 (130-400) K/uL BMP 08/01/24 06:01 Sodium 141 Potassium 3.7 Chloride 111 H Carbon Dioxide 25 BUN 22 Creatinine 0.78 Glucose 95 Calcium 8.2 L Cardiac Enzymes 08/01/24 Range/Units 06:01 Total Creatine Kinase 3046 H (26-192) U/L Liver Function 08/01/24 Range/Units 06:01 Total Bilirubin 0.8 D (0.2-1.0) mg/dl Direct Bilirubin 0.1 (0-0.2) mg/dl AST 136 H (13-39) U/L ALT 67 H (7-52) U/L Alkaline Phosphatase 56 (34-104) U/L Albumin 3.2 L (3.4-5.0) gm/dl Medications Administered Current Inpatient Medications Acetaminophen (Acetaminophen 325 Mg Tab) 650 mg PO Q4H PRN PRN Reason: Pain or Fever Stop: 08/30/24 02:40 Multivitamins (Multivitamin Tab) 1 tab PO DAILY ANALISA Stop: 08/30/24 08:59 Last Admin: 08/01/24 08:44 Dose: 1 tab Nitroglycerin (Nitroglycerin Sl 0.4 Mg/Tab Tab) 0.4 mg SL Q5M PRN PRN Reason: Chest Pain Stop: 08/30/24 02:40
[2024-08-01] MEDS: ACETAMINOPHEN 325 MG TAB PO PRN (19:19)
[2024-08-01] MEDS: LACTATED RINGER'S 1,000 ML IV SCH (20:57)
[2024-08-02 06:23] LABS: Albumin Globulin Ratio 1.6 (0.9-2); BUN Creatinine Ratio 24.4 (10-20); Bilirubin,Total 0.5 mg/dl (0.2-1.0); Calcium 8.9 mg/dl (8.6-10.3); Creatinine Clr Calc Pharmacy 68.6 ml/min; Globulin 2.3 gm/dl (2.5-4.0); Magnesium 1.8 mg/dl (1.7-2.4); Potassium 3.4 mmol/L (3.5-5.1); Total Protein 5.9 gm/dl (6.0-8.3)
[2024-08-02 09:15] LABS: Hep B Surface Ag with confirm Negative (Negative)
[2024-08-02 09:20] LABS: Hep C Ab Rflx HepCQuant RNA Negative (Negative)
[2024-08-02] MEDS: POTASSIUM CHLORIDE CRTAB 20 MEQ TABCR PO STA (10:51)
--- NOTE | 2024-08-02 12:35 | Hospitalist Progress Note ---
Date of Service August 02, 2024 Assessment & Plan (1) Rhabdomyolysis: Plan: 54-year-old female with past medical history significant for primary hyperparathyroidism status post surgery, exercise-induced asthma who participated in [employer] today comes in because of not feeling well and found to have rhabdomyolysis. Patient participated in [employer] today which included swimming of over a 1 mile, 56 mile bike ride and half marathon. Patient completed the event and stayed hydrated. But after completing [employer] patient was having heart rates in 100s and was breathing heavily which did not improve even after several hours and also had several hours of diarrhea which prompted her to come to the ER. Currently diarrhea resolved. Denies any chest pain. Has some bodyaches from all the activity. Denies any shortness of breath. No headache. No runny nose or sore throat or cough. No fevers. No nausea. Micturating okay. Hemodynamics are okay. Acute Rhabdomyolysis Participated in [employer] which included more than a mile of swimming, 56 miles of bike ride and half marathon. Completed the event. After that she was having heart rates in 100s and heavy breathing and diarrhea which did not subside even after several hours and came to the ER. [id number] Continue increased IV fluids Avoid statin for now Renal function improving CK remains elevated at more than 3000 Will decrease IV fluid to 150 cc an hour and was advised to drink more fluid Remains asymptomatic and has been ambulating without any difficulties CK level has been down to 1916 and in the right direction She will be discharged home this afternoon and she was advised to drink more fluid and keep appointment with her PCP to recheck the level Elevated troponin Abnormal EKG Prolonged QTc --ECHO: Mild concentric LVH, no regional wall motion abnormality. Left ventricular systolic function normal. Trace aortic regurgitation is present. Grade 1 diastolic dysfunction. EF 63%. Troponin trended down Plan for stress test today- negative for any ischemia Appreciate cardiology input and recommendation Prolonged QTc Avoid QT prolonging drugs Monitor Elevated LFTs Total bilirubin 1.9 AST 140 and ALT 52 and alkaline phosphatase 77 Likely due to rhabdomyolysis Recheck LFTs tomorrow- minimally improved Will monitor Will get hepatitis profile- hepatitis panel is pending Liver function has been improving Mild hypercalcemia Calcium 10.4 Likely due to dehydration Calcium levels improved with IV fluids Monitor Acute kidney injury Creatinine 1.0 today Continue IV fluids Avoid nephrotoxic agents as able Kidney function has been normal Leukocytosis Findings suggestive of bronchitis on chest x-ray Patient denies any respiratory symptoms currently Check procalcitonin-0.74 DVT Px: SCDs for now CODE STATUS Full code Disposition Discharged home this afternoon Admission and Anticipated Discharge Date Admission Date: July 31, 2024 Subjective 08/01/2024 The patient was seen and examined in telemetry unit She has been feeling much better denies any significant symptoms Has been making out enough urine Minimal puffiness of the face and eyelid 08/02/2024 The patient was seen and examined in medical floor She has been feeling much better and denies any symptoms Has been walking around without any significant symptoms She wants to go home and will be discharged home this afternoon Review of Systems Review of Systems: All systems reviewed and are unremarkable except as noted below Physical Exam Physical Exam: Lying in bed without any acute distress Constitutional: well developed and well nourished; not ill appearing Eyes: PERRL, conjunctivae normal, anicteric sclerae ENMT: external ear and nose normal, oropharynx normal Neck: trachea midline, no thyromegaly Respiratory: no respiratory distress Auscultation: lungs clear to auscultation bilaterally Cardiovascular: Rate/Rhythm: regular rate, regular rhythm and + bradycardic Heart Sounds: normal S2; no murmur Extremities: no edema Gastrointestinal (Abdomen): Inspection/Auscultation: normal bowel sounds; abdomen not distended Percussion/Palpation: abdomen soft; abdomen nontender Neurologic: normal touch/pain/proprioception and moves all extremities; no focal motor deficits Lymphatic: no cervical or axillary lymphadenopathy Results & Data Results & Data Vital Signs (Past 12 Hours) Vital Signs Temp Pulse Resp BP Pulse Ox O2 Del Method 08/02/24 07:30 36.6 C 50 L 16 143/80 H 97 Room Air Laboratory Results [facility] 08/02/24 05:33 Sodium 142 Potassium 3.4 L Chloride 107 Carbon Dioxide 29 BUN 19 Creatinine 0.78 Glucose 97 Calcium 8.9 Cardiac Enzymes 08/02/24 Range/Units 05:33 Total Creatine Kinase 1916 H (26-192) U/L Liver Function 08/02/24 Range/Units 05:33 Total Bilirubin 0.5 (0.2-1.0) mg/dl AST 110 H (13-39) U/L ALT 78 H (7-52) U/L Alkaline Phosphatase 67 (34-104) U/L Albumin 3.6 (3.4-5.0) gm/dl Medications Administered Current Inpatient Medications Acetaminophen (Acetaminophen 325 Mg Tab) 650 mg PO Q4H PRN PRN Reason: Pain or Fever Stop: 08/30/24 02:40 Last Admin: 08/01/24 19:19 Dose: 650 mg Lactated Ringer's (Lr) 1,000 mls @ 75 mls/hr IV .[id number] ANALISA Stop: 08/04/24 18:59 Last Infusion: 08/02/24 11:39 Dose: 75 mls/hr Multivitamins (Multivitamin Tab) 1 tab PO DAILY ANALISA Stop: 08/30/24 08:59 Last Admin: 08/02/24 07:53 Dose: 1 tab Nitroglycerin (Nitroglycerin Sl 0.4 Mg/Tab Tab) 0.4 mg SL Q5M PRN PRN Reason: Chest Pain Stop: 08/30/24 02:40
--- NOTE | 2024-08-02 17:15 | Discharge Summary ---
Date of Service August 02, 2024 Admission HPI Per Admitting Provider 54-year-old female with past medical history significant for primary hyperparathyroidism status post surgery, exercise-induced asthma who participated in [employer] today comes in because of not feeling well and found to have rhabdomyolysis. Patient participated in [employer] today which included swimming of over a 1 mile, 56 mile bike ride and half marathon. Patient completed the event and stayed hydrated. But after completing [employer] patient was having heart rates in 100s and was breathing heavily which did not improve even after several hours and also had several hours of diarrhea which prompted her to come to the ER. Currently diarrhea resolved. Denies any chest pain. Has some bodyaches from all the activity. Denies any shortness of breath. No headache. No runny nose or sore throat or cough. No fevers. No nausea. Micturating okay. Hemodynamics are okay. Past medical history. As mentioned above Past surgical history. Parathyroidectomy. dental surgery Social history. No smoking. No alcohol use. Family history. Denies any family history. Admission Exam Per Admitting Provider Physical Exam: General- Not in distress Head- atraumatic Eyes- PERRL. ENT- oropharynx clear Neck- supple, no JVD. Lungs- clear to auscultation no wheezing or crackles Heart- regular rate and rhythm; no murmur, no gallop. Abdomen- normal bowel sounds, soft, nontender, no distension Extremities- no pretibial edema, no erythema seen Neuro- alert, oriented PERRL, no facial palsy; no dysarthria; moves extremities Principal Diagnosis Rhabdomyolysis Discharge Exam Lying in bed without any acute distress Constitutional well developed and well nourished; not ill appearing Eyes PERRL, conjunctivae normal, anicteric sclerae ENMT external ear and nose normal, oropharynx normal Neck trachea midline, no thyromegaly Respiratory no respiratory distress Auscultation: lungs clear to auscultation bilaterally Cardiovascular Rate/Rhythm: regular rate, regular rhythm and + bradycardic Heart Sounds: normal S2; no murmur Extremities: no edema Gastrointestinal (Abdomen) Inspection/Auscultation: normal bowel sounds; abdomen not distended Percussion/Palpation: abdomen soft; abdomen nontender Neurologic normal touch/pain/proprioception and moves all extremities; no focal motor deficits Lymphatic no cervical or axillary lymphadenopathy Discharge Data Allergies Allergy/AdvReac Type Severity Reaction Status Date / Time No Known Allergies Allergy Unverified 07/30/24 20:54 Consultations 07/31/24 00:31 ED Decision to Admit Stat 07/31/24 07:31 Consult Cardiology Routine Hospital Course (1) Rhabdomyolysis: 54-year-old female with past medical history significant for primary hyperparathyroidism status post surgery, exercise-induced asthma who participated in [employer] today comes in because of not feeling well and found to have rhabdomyolysis. Patient participated in [employer] today which included swimming of over a 1 mile, 56 mile bike ride and half marathon. Patient completed the event and stayed hydrated. But after completing [employer] patient was having heart rates in 100s and was breathing heavily which did not improve even after several hours and also had several hours of diarrhea which prompted her to come to the ER. Currently diarrhea resolved. Denies any chest pain. Has some bodyaches from all the activity. Denies any shortness of breath. No headache. No runny nose or sore throat or cough. No fevers. No nausea. Micturating okay. Hemodynamics are okay. Acute Rhabdomyolysis Participated in [employer] which included more than a mile of swimming, 56 miles of bike ride and half marathon. Completed the event. After that she was having heart rates in 100s and heavy breathing and diarrhea which did not subside even after several hours and came to the ER. [id number] Continue increased IV fluids Avoid statin for now Renal function improving CK remains elevated at more than 3000 Will decrease IV fluid to 150 cc an hour and was advised to drink more fluid Remains asymptomatic and has been ambulating without any difficulties CK level has been down to 1916 and in the right direction She will be discharged home this afternoon and she was advised to drink more fluid and keep appointment with her PCP to recheck the level Elevated troponin Abnormal EKG Prolonged QTc --ECHO: Mild concentric LVH, no regional wall motion abnormality. Left ventricular systolic function normal. Trace aortic regurgitation is present. Grade 1 diastolic dysfunction. EF 63%. Troponin trended down Plan for stress test today- negative for any ischemia Appreciate cardiology input and recommendation Prolonged QTc Avoid QT prolonging drugs Monitor Elevated LFTs Total bilirubin 1.9 AST 140 and ALT 52 and alkaline phosphatase 77 Likely due to rhabdomyolysis Recheck LFTs tomorrow- minimally improved Will monitor Will get hepatitis profile- hepatitis panel is pending Liver function has been improving Mild hypercalcemia Calcium 10.4 Likely due to dehydration Calcium levels improved with IV fluids Monitor Acute kidney injury Creatinine 1.0 today Continue IV fluids Avoid nephrotoxic agents as able Kidney function has been normal Leukocytosis Findings suggestive of bronchitis on chest x-ray Patient denies any respiratory symptoms currently Check procalcitonin-0.74 DVT Px: SCDs for now CODE STATUS Full code Disposition Discharged home this afternoon Total Time Total Time Spent Total Time Spent (In Minutes): 35 Minutes Discharge Plan Discharge Items Patient Disposition: Home - Self-Care Reason For Visit: RAHBDOMYOLYSIS, ELEVATED TROP Discharge Diagnosis: Rhabdomyolysis Condition on Discharge: Fair Activity: Resume your previous activity Non-emergency contact: Primary Care Provider Call non-emergency contact if: you have any medication questions and your symptoms worsen Follow-up/Referrals: Suzan Marrero, [Primary Care Provider] - (Date & Time 08/04/2024 11:00 AM Provider: Anabella Milton CRNP [facility] ) Diet: Regular Addtl Attending Provider Instructions: Please take precautions to avoid falls Try to drink more fluid and electrolytes especially when doing exercise You will need to have recheck of your kidney function, CPK and liver function test when you see your PCP Please keep appointment with your healthcare provider Pending Studies at Discharge: Yes Studies:: Hepatitis panel Stand-Alone Forms: My [facility]ights, Smoking Cessation Medications and DC Order Prescriptions: Continued multivitamin Tablet 1 tab PO DAILY cetirizine [Zyrtec] 10 mg Tablet 10 mg PO DAILY PRN (Reason: allergies) Discharge Orders: Discharge Order (Routine); Ordered 08/02/24 Ordered By: Paul Sung Admission Data Admit Date/Time: 07/31/24 01:44 Attending Provider: Paul Sung Admit Provider: Eleazar Cruz Primary Care Provider: Suzan Marrero Other Providers: Lang Reed; Eleazar Cruz; Daniel Mcleod Other Interventions: Discharge Summary Assessment (RN) Last Done: 08/02/24 13:19
--- NOTE | 2024-08-03 04:02 | Electrocardiogram Report ---
Test Reason : Blood Pressure : */* mmHG Vent. Rate : 48 BPM Atrial Rate : 48 BPM P-R Int : 144 ms QRS Dur : 96 ms QT Int : 514 ms P-R-T Axes : 76 32 28 degrees QTcB Int : 459 ms Sinus bradycardia RSR' or QR pattern in V1 suggests right ventricular conduction delay Borderline ECG When compared with ECG of 01-Aug-2024 05:36, No significant change was found Confirmed by Aron Kinney ([id number]) on 08/03/2024 4:02:47 AM Referred By: REFERRED SELF Confirmed By: Aron Kinney
[2024-08-03 11:32] LABS: Hepatitis A Antibody IgM NON-REACTIVE (NON-REACTIVE); Hepatitis B Core Antibody IgM NON-REACTIVE (NON-REACTIVE)
== END 2024-08-02 14:02 | disposition home or self-care (01) | DRG 558 ==
LOC: ED 20:14 → SUATTDRO 07-31 01:44 → INTOOBSV 07-31 01:44 → 2S 07-31 01:44 → 3E 08-01 20:45